=== PATIENT | female | born 1985 | race Caucasian/White ===

== ENCOUNTER 2016-09-29 23:07 | Emergency (ER) | payer OTHER ==
[~2016-09-29] VITALS: Ht 162.6 cm; Wt 51.3 kg
[~2016-09-29 23:07] MED LIST: ACETAMINOPHEN500 MG PO; ADDERALL XR 1010 MG PO; ADDERALL10 MG PO; ADVAIR 500-501 EACH IH; ADVAIR 500/501 DISK IH; ALBUTEROL17 G1 IH; ALBUTEROL2.5 MG/3 M IH; BENADRYL50 MG PO; BUPRENORPHINE HC2 MG SL; CLONIDINE HCL0.1 MG PO; ENDOCET 5-3251 EACH PO; FERROUS SULFAT325 MG PO; FLAGYL500 MG PO; FLUOXETINE HCL20 MG PO; HEMOCYTE324 MG PO; IBUPROFEN800 MG PO; LEVAQUIN500 MG PO; LEXAPRO10 MG PO; NITROFURANTOIN100 M3 PO; OMEPRAZOLE20 MG PO; PERCOCET 5/31 TABLET PO; PREDNISONE10 MG PO; PREDNISONE20 MG PO; PREDNISONE5 M1 PO; PRENATAL TABLE1 EAC3 PO; PRILOSEC20 MG PO; PULMICORT FLE180 MCG IH; SUBOXONE 8 MG-1 EAC2 SL; SUBUTEX PO; TRAMADOL HCL50 MG PO; ULTRAM50 MG PO; VENTOLIN HFA18 GM IH; ZOFRAN ODT4 MG PO; ZYRTEC10 M3 PO
[2016-09-30] MEDS ORDERED: MEDROL DOSEPAK4 MG PO (01:01)
[2016-09-30 01:13] VITALS: BP 123/84
== END 2016-09-30 01:13 | disposition home or self-care (01) ==
LOC: EME 23:07
DX: J45.901 Unspecified asthma with (acute) exacerbation (principal); F17.200 Nicotine dependence, unspecified, uncomplicated
CPT/HCPCS: 94640; J7512